=== PATIENT | female | born 1965 | race Hispanic/Latino ===

== ENCOUNTER 2018-01-03 09:25 | Emergency (ER) | payer BC ==
--- NOTE | 2018-01-03 09:53 | ER ---
Nurse's Notes [facility] Name: Nataly Johnston Age: 52 yrs Sex: Female : 1965 Arrival Date: 01/03/2018 Time: 09:30 Bed 20 Private MD: None, None Diagnosis: Diabetes mellitus due to underlying condition with diabetic neuropathy, unspecified;Sciatica, right side Presentation: 01/03 09:36 Presenting complaint: Patient states: bilateral foot pain that feels like pinpricks x 1 ss year and pain to R buttock that radiates down R leg x 2 week that got worse last night. Pt reports she has been trying to get in with a specialist, but since she has new insurance they are trying to get her medical records "straight". Transition of care: patient was not received from another setting of care. Onset of symptoms was 2016. Initial Sepsis Screen: Does the patient meet any 2 criteria? No. Patient's initial sepsis screen is negative. Does the patient have a suspected source of infection? No. Patient's initial sepsis screen is negative. Care prior to arrival: None. 09:36 Method Of Arrival: Ambulatory ss 09:36 Acuity: DMITRI 5 ss 09:37 Risk Assessment: Do you want to hurt yourself or someone else? Patient reports no hj desire to harm self or others. Initial Sepsis Screen: Does the patient meet any 2 criteria? No. Patient's initial sepsis screen is negative. Does the patient have a suspected source of infection? No. Patient's initial sepsis screen is negative. Care prior to arrival: None. Triage Assessment: 09:36 General: Appears in no apparent distress. uncomfortable, Behavior is calm, cooperative, hj appropriate for age. Pain: Complains of pain in back, buttocks, right leg and left leg. EENT: No signs and/or symptoms were reported regarding the EENT system. Neuro: Level of Consciousness is awake, alert, obeys commands, Oriented to person, place, time, situation, Appropriate for age. Cardiovascular: Capillary refill < 3 seconds Patient's skin is warm and dry. Respiratory: Airway is patent Respiratory effort is even, unlabored, Respiratory pattern is regular, symmetrical. GI: No signs and/or symptoms were reported involving the gastrointestinal system. : No signs and/or symptoms were reported regarding the genitourinary system. Derm: No signs and/or symptoms reported regarding the dermatologic system. Musculoskeletal: Historical: - Allergies: 09:37 No Known Allergies; hj - Home Meds: 09:37 Tresiba FlexTouch U-100 100 unit/mL (3 mL) subcutaneous inpn [Active]; gabapentin 300 hj mg oral cap 1 cap 3 times per day [Active]; fenofibric acid 35 mg oral tab 1 tab once daily [Active]; metformin 500 mg Oral tab 1 tab 2 times per day [Active]; Ranitidine Oral [Active]; - PMHx: 09:37 Hyperlipidemia; Diabetes - NIDDM; hj - PSHx: 09:37 None; hj - Immunization history:: Adult Immunizations unknown. - Social history:: Smoking status: Patient uses tobacco products, Patient/guardian denies using alcohol. - Ebola Screening: : Patient negative for fever greater than or equal to 101.5 degrees Fahrenheit, and additional compatible Ebola Virus Disease symptoms Patient denies exposure to infectious person Patient denies travel to an Ebola-affected area in the 21 days before illness onset. Screenin:36 Abuse screen: Denies threats or abuse. Denies injuries from another. Nutritional screening: No deficits noted. Tuberculosis screening: No symptoms or risk factors identified. Fall Risk None identified. Assessment: 10:05 Reassessment: Patient and/or family updated on plan of care and expected duration. Pain ed1 level reassessed. Patient is alert, oriented x 3, equal unlabored respirations, skin warm/dry/pink. Patient states symptoms have not improved. Vital Signs: 09:36 BP 149 / 76; Pulse 86; Resp 16; Temp 98.1(O); Pulse Ox 98% on R/A; Weight 94.8 kg; Height 5 ft. 4 in. (162.56 cm); Pain 9/10; 09:38 BP 149 / 76; Pulse 86; Resp 18; Temp 98.1(O); Pulse Ox 100% on R/A; Weight 94.8 kg; Height 5 ft. 4 in. (162.56 cm); 10:05 BP 111 / 58; Pulse 84; Resp 18; Temp 97.2(O); Pulse Ox 99% on R/A; Pain 8/10; ed1 09:38 Body Mass Index 35.87 (94.80 kg, 162.56 cm) ED Course: 09:30 Patient arrived in ED. mr 09:30 None, None is Private Physician. mr 09:33 Jules Dutton, RN is Primary Nurse. hj 09:37 Arm band placed on right wrist. hj 09:38 Triage completed. ss 09:38 Patient has correct armband on for positive identification. Bed in low position. Call hj light in reach. Side rails up X 1. 09:39 [facility]. jr8 09:39 Joshua Stewart MD is Attending Physician. jr8 10:05 No provider procedures requiring assistance completed. Patient did not have IV access ed1 during this emergency room visit. Administered Medications: No medications were administered Outcome: :52 Discharge ordered by . jr8 10:06 Discharged to home ambulatory. ed1 10:06 Condition: good 10:06 Discharge instructions given to patient, Instructed on discharge instructions, follow up and referral plans. medication usage, Demonstrated understanding of instructions, follow-up care, medications, Prescriptions given X 3. 10:06 Patient left the ED. ed1 Signatures: Shirin Taylor Laurie Heart, RN RN Jayshree Mott, AGRICULTURAL PRODUCTION ENGINEER AGRICULTURAL PRODUCTION ENGINEER ed1 Ivan Rodriguez PA PA [facility] Jules Dutton, RN ALBARO
--- NOTE | 2018-01-03 09:53 | EDPHYS ---
Physician Documentation [facility] Name: Nataly Johnston Age: 52 yrs Sex: Female : 1965 Arrival Date: 01/03/2018 Time: 09:30 Bed 20 Private MD: None, None ED Physician Joshua Stewart HPI: 01/03 10:15 This 52 yrs old Female presents to ER via Ambulatory with complaints of Foot jr8 Pain. 10:15 Patient stated that she has continuous bilateral foot pain. Stated that she gets jr8 tingling and burning sensations along with cold sensations to both feet. Stated that her right low back to hip hurts as well. History of diabetes and is currently on gabapentin . Severity of symptoms: At their worst the symptoms were moderate in the emergency department the symptoms are unchanged. It is unknown whether or not the patient has had similar symptoms in the past. The patient has not recently seen a physician. Historical: - Allergies: 09:37 No Known Allergies; hj - Home Meds: 09:37 Tresiba FlexTouch U-100 100 unit/mL (3 mL) subcutaneous inpn [Active]; gabapentin 300 hj mg oral cap 1 cap 3 times per day [Active]; fenofibric acid 35 mg oral tab 1 tab once daily [Active]; metformin 500 mg Oral tab 1 tab 2 times per day [Active]; Ranitidine Oral [Active]; - PMHx: 09:37 Hyperlipidemia; Diabetes - NIDDM; hj - PSHx: 09:37 None; hj - Immunization history:: Adult Immunizations unknown. - Social history:: Smoking status: Patient uses tobacco products, Patient/guardian denies using alcohol. - Ebola Screening: : Patient negative for fever greater than or equal to 101.5 degrees Fahrenheit, and additional compatible Ebola Virus Disease symptoms Patient denies exposure to infectious person Patient denies travel to an Ebola-affected area in the 21 days before illness onset. ROS: 10:15 Eyes: Negative for injury, pain, redness, and discharge, ENT: Negative for injury, jr8 pain, and discharge, Neck: Negative for injury, pain, and swelling, Cardiovascular: Negative for chest pain, palpitations, and edema, Respiratory: Negative for shortness of breath, cough, wheezing, and pleuritic chest pain, Abdomen/GI: Negative for abdominal pain, nausea, vomiting, diarrhea, and constipation, Skin: Negative for injury, rash, and discoloration. 10:15 MS/Extremity: Negative for injury and deformity. 10:15 Back: Positive for pain at rest, pain with movement, radiated pain, of the right low back. 10:15 Neuro: Positive for numbness, tingling, of the right foot and left foot, Negative for altered mental status, dizziness, gait disturbance, headache, hearing loss, loss of consciousness, seizure activity, speech changes, syncope, near syncope, tremor, visual changes, weakness. Exam: 10:15 Eyes: Pupils equal round and reactive to light, extra-ocular motions intact. Lids and jr8 lashes normal. Conjunctiva and sclera are non-icteric and not injected. Cornea within normal limits. Periorbital areas with no swelling, redness, or edema. ENT: Nares patent. No nasal discharge, no septal abnormalities noted. Tympanic membranes are normal and external auditory canals are clear. Oropharynx with no redness, swelling, or masses, exudates, or evidence of obstruction, uvula midline. Mucous membranes moist. Neck: Trachea midline, no thyromegaly or masses palpated, and no cervical lymphadenopathy. Supple, full range of motion without nuchal rigidity, or vertebral point tenderness. No Meningismus. Cardiovascular: Regular rate and rhythm with a normal S1 and S2. No gallops, murmurs, or rubs. Normal PMI, no JVD. No pulse deficits. Respiratory: Lungs have equal breath sounds bilaterally, clear to auscultation and percussion. No rales, rhonchi or wheezes noted. No increased work of breathing, no retractions or nasal flaring. Abdomen/GI: Soft, non-tender, with normal bowel sounds. No distension or tympany. No guarding or rebound. No evidence of tenderness throughout. Back: No spinal tenderness. No costovertebral tenderness. Full range of motion but with right leg lift pain at 45 degrees Skin: Warm, dry with normal turgor. Normal color with no rashes, no lesions, and no evidence of cellulitis. MS/ Extremity: Pulses equal, no cyanosis. Neurovascular intact. Full, normal range of motion. Neuro: Awake and alert, GCS 15, oriented to person, place, time, and situation. Cranial nerves II-XII grossly intact. Motor strength 5/5 in all extremities. Cerebellar exam normal. Normal gait. Decreased 2 point discrimination and sensation to plantar surfaces of both feet Vital Signs: 09:36 BP 149 / 76; Pulse 86; Resp 16; Temp 98.1(O); Pulse Ox 98% on R/A; Weight 94.8 kg; ss Height 5 ft. 4 in. (162.56 cm); Pain 9/10; 09:38 BP 149 / 76; Pulse 86; Resp 18; Temp 98.1(O); Pulse Ox 100% on R/A; Weight 94.8 kg; hj Height 5 ft. 4 in. (162.56 cm); 10:05 BP 111 / 58; Pulse 84; Resp 18; Temp 97.2(O); Pulse Ox 99% on R/A; Pain 8/10; ed1 09:38 Body Mass Index 35.87 (94.80 kg, 162.56 cm) hj MDM: 09:40 Patient medically screened. jr8 09:50 Data reviewed: vital signs, nurses notes, and as a result, I will discharge patient. jr8 Data interpreted: Pulse oximetry: on room air is 100 %. Interpretation: normal. Counseling: I had a detailed discussion with the patient and/or guardian regarding: the historical points, exam findings, and any diagnostic results supporting the discharge/admit diagnosis, the need for outpatient follow up, a family practitioner, a neurologist, to return to the emergency department if symptoms worsen or persist or if there are any questions or concerns that arise at home. Administered Medications: No medications were administered Disposition: 11:53 Co-signature as Attending Physician, Joshua Stewart MD I agree with the assessment and kdr plan of care. Disposition: 01/03/18 09:52 Discharged to Home. Impression: Diabetes mellitus due to underlying condition with diabetic neuropathy, unspecified, Sciatica, right side. - Condition is Stable. - Discharge Instructions: Diabetes and Foot Care, Sciatica, Diabetic Neuropathy. - Prescriptions for gabapentin 300 mg Oral capsule - take 3 capsule by ORAL route 3 times per day; 120 capsule. Mobic 7.5 mg Oral Tablet - take 1 tablet by ORAL route once daily take with food; 20 tablet. Tylenol- Codeine #3 300-30 mg Oral Tablet - take 2 tablet by ORAL route every 6 hours As needed; 30 tablet. - Work release form, Medication Reconciliation Form, Thank You Letter, Antibiotic Education, Prescription Opioid Use form. - Follow up: Private Physician; When: 2 - 3 days; Reason: Recheck today's complaints, Continuance of care, Re-evaluation by your physician. - Problem is new. - Symptoms have improved. Signatures: Joshua Stewart MD MD [facility] Jayshree Mott, BREWING DIRECTOR BREWING DIRECTOR ed1 Ivan Rodriguez PA PA jr8 Jules Dutton RN RN hj Corrections: (The following items were deleted from the chart) 10:06 09:52 01/03/2018 09:52 Discharged to Home. Impression: Diabetes mellitus due to ed1 underlying condition with diabetic neuropathy, unspecified; Sciatica, right side. Condition is Stable. Forms are Medication Reconciliation Form, Thank You Letter, Antibiotic Education, Prescription Opioid Use. Follow up: Private Physician; When: 2 - 3 days; Reason: Recheck today's complaints, Continuance of care, Re-evaluation by your physician. Problem is new. Symptoms have improved. jr8
== END 2018-01-03 10:06 | disposition home or self-care (01) ==
LOC: ER 09:25
DX: E11.21 Type 2 diabetes mellitus with diabetic nephropathy (principal); M54.31 Sciatica, right side; E78.5 Hyperlipidemia, unspecified; F17.200 Nicotine dependence, unspecified, uncomplicated
CPT/HCPCS: 99282